=== PATIENT | female | born 1965 | race Caucasian/White ===

== ENCOUNTER 2018-12-10 20:45 | Emergency (ER) | payer SELFPAY | END 2018-12-11 02:00 | disposition left against medical advice (07) | LOC: FTE 20:45 | DX: Z53.21 Procedure and treatment not carried out due to patient leaving prior to being seen by health care provider (principal) ==

== ENCOUNTER 2019-02-11 21:20 | Emergency (ER) | payer OTHER ==
[2019-02-12] MEDS: DIPHENHYDRAMINE 25 MG CAP PO (00:16)
== END 2019-02-12 00:50 | disposition home or self-care (01) ==
LOC: FTE 02-12 00:50
DX: L03.311 Cellulitis of abdominal wall (principal); L03.317 Cellulitis of buttock
CPT/HCPCS: 99283; Z7610